=== PATIENT | female | born 1970 | race Caucasian/White ===

== ENCOUNTER 2017-01-13 00:31 | Emergency (ER) | payer BC ==
[2017-01-13] MEDS: Aspirin 81mg Chewable Tab PO STA ×2 (01:00→01:05)
[2017-01-13] MEDS ORDERED: Aspirin 81mg Chewable Tab ONE ×2 (01:02→01:05)
[2017-01-13] MEDS: Sodium Chloride 0.9% 1,000 ML IV ONE (01:10)
[2017-01-13] MEDS: Heparin Sodium 1,000 Units/mL Vial IVP STA (01:13)
[2017-01-13 01:14] LABS: % BASOPHILS 1.3 % (0.0-2.0); % LYMPHOCYTES 16.7 % (20.0-50.0); % MONOCYTES 6.6 % (2.0-10.0); % NEUTROPHILS 73.4 % (40.0-80.0); HEMATOCRIT 38.9 % (41.0-60); HEMOGLOBIN 13.7 gm/dL (12-16); MEAN CELL VOLUME 88.2 fl (81-100); MEAN CORPUSCULAR HGB CONC 35.1 pg (28.0-36.0); MEAN PLATELET VOLUME 9.1 fl; NEUTROPHILE ABSOLUTE 11.7 Th/cmm (1.8-8.0); PLATELET COUNT 233 Th/cmm (150-400); RED BLOOD COUNT 4.41 Mil/cmm (3.80-5.10)
[2017-01-13] MEDS ORDERED: Metoprolol tartrate 1 mg/ml 5mL Amp IV ONE ×2 (01:15→01:26)
[2017-01-13] MEDS: Metoprolol tartrate 1 mg/ml 5mL Amp IV STA ×2 (01:15→01:24)
[2017-01-13] MEDS ORDERED: Morphine Sulfate 4 mg/mL 1mL Syr ONE (01:18)
[2017-01-13 01:21] LABS: WHITE BLOOD COUNT 15.9 Th/cmm (4.8-10.8)
[2017-01-13 01:40] LABS: ALB/GLOB RATIO 1.5 (1.0-1.8); ALKALINE PHOSPHATASE 81 U/L (34-104); BILIRUBIN,TOTAL 0.4 mg/dL (0.3-1.0); BUN - UREA NITROGEN 15 mg/dL (7-25); BUN/CREATININE RATIO 21.4; CARBON DIOXIDE 28.6 mEq/L (21.0-31.0); CHLORIDE 105 mEq/L (98-107); CHOLESTEROL 158 mg/dL (<200); CREATININE - SERUM 0.7 mg/dL (0.6-1.2); GLUCOSE 138 mg/dL (70-105); POTASSIUM SERUM 3.6 mEq/L (3.5-5.1); SGOT 17 U/L (13-39); SGPT/ALT 25 U/L (7-52); SODIUM SERUM 139 mEq/L (136-145); TRIGLYCERIDES 118 mg/dL (<150)
--- NOTE | 2017-01-13 01:54 | ER Physician Documentation ---
DATE OF SERVICE: 01/13/2017 HISTORY OF PRESENT ILLNESS: A 46-year-old female patient. Date of admission 1970, full code patient. ALLERGIES: No known allergies. Body weight is 90.781. This is a female patient, date of 1970. This is a 46-year-old female patient who came to the hospital. INCOMPLETE DICTATION. [facility]# [id number]
--- NOTE | 2017-01-13 04:30 | ER Physician Documentation ---
DATE OF SERVICE: 01/13/2017 EVALUATION AND TREATMENT IN THE EMERGENCY ROOM The patient is a full code. The patient's weight is 90.718 kg. The patient came to the hospital with chest pain via an ambulance stretcher. She was put in bed 1 and Vera is the nurse trying to take care of the patient and the patient has been having chest pain since 10:00 and she has been having occasional episodes of this chest pain for which she takes a pickle and it relieves the pain. Now the pain is persistent for which she came to the Emergency Room. HISTORY OF PRESENT ILLNESS: The patient is known to have severe hypertension for which she takes losartan 100 mg once a day. She has rheumatoid arthritis for many years for which she takes I think Humira injections, the dose exactly is not known. She was having a lot of pain and immediately we got an EKG done and I looked at the EKG and orders were all immediately placed. EKG showed acute inferior wall SD. The first EKG that was done on 01/13/2017 at 12:52 a.m., the lateral leads also started showing ST depressions in lead I, lead aVL, ST elevations in leads II, III, aVF and some ST elevations were seen also in lead III and some ST elevations were also seen slight 0.5 mm in V4, V5, V6. A second EKG was immediately ordered also, it was done at 01:12, almost 18 minutes apart. This showed that the patient has what looks like a junctional rhythm type of pattern. There are no P waves seen. There is a right bundle-branch block pattern, inferior wall SD and anteroseptal wall SD is seen and lateral leads are also involved. We need to get right precordial EKGs but in the meantime the paramedics arrived and they were ready to take the patient. The patient was ordered to be given aspirin 162 mg chewable x 2, i.e., 325 mg was given; Plavix 75 mg once was given and then 300 mg once was given but the nurse unfortunately did not give that saying that she has not given Plavix that much ever in her lifetime; heparin 5000 units was given; losartan 50 mg was given because at admission blood pressure was 177 over more than 100, if I can remember, 107 or something like that; metoprolol 5 mg IV was given first and after about 20 minutes after due reluctance by the nurse, Vera, the second metoprolol was given to the patient and the blood pressure was 125/73 and the heart rate was 103 beats per minute; morphine 4 mg was given to the patient; nitroglycerin 0.4 mg x 3 was ordered but 0.4 x 2 has been given, IV nitroglycerin has been ordered. Protonix was ordered in case if we find time. Labs were ordered; some labs are available, some are not available. The patient was immediately transferred to [facility]. Emergency Room was called by our nurse, Bull. He called and gave the report to the Emergency Room. Bull who called the report to the Emergency Room doctor and the patient was transferred. She voided and she went to the Emergency Room over there. She was picked up by the paramedics in the fire ambulance. PAST MEDICAL HISTORY: She had similar kind of pain about 1 year ago and she came to this hospital. The patient's lab workup was sent and is not yet available. All the cardiac enzymes, BNP, troponin, magnesium, etc., were ordered. CRP, lipid profile, etc., were ordered. The patient was sent to Emergency Room, [facility], where the telephone number is [phone]. The patient's past medical history is that she also has rheumatoid arthritis for which she takes Humira injections by her physician. She has hypertension for which she takes 100 mg of metoprolol. She has obesity. She does not remember that she has any hypercholesterolemia. She does not take any medicines for high cholesterol. Her weight is 90.78 kg. She has discomfort that started in the center of the chest, gradually increased to 10/10 or 11/10 according to her, radiating into the left arm, associated with mild diaphoresis, discomfort, difficulty in breathing and classical features of an acute myocardial infarction was noted. The ball immediately started rolling and the patient was transferred out in 55 minutes to be exact. The patient from the time that she was rolled in to the time the patient left the ER was about 55 minutes. The patient's risk factors for coronary artery disease includes her age and includes her having this pain before, rheumatoid arthritis, and other histories could not be taken because she was in discomfort, not able to give any history, while she was having any pain. The nurse was trying to give the medications and magnesium report was not available. We could not know what the magnesium level was. We do not have any troponin results also at the time of the dictation. The patient's past medical history is other than rheumatoid arthritis, hypertension. No other history was given by the patient. The code status is full. Past history as I mentioned. REVIEW OF SYSTEMS: CONSTITUTIONAL: She did not complain of any complaint of eyes. HEART: Other than chest, she had no complaint of shortness of breath. She had no history of any rheumatic fever, valvular heart disease, pericardial disease or cardiomyopathy. GASTROINTESTINAL: No complaints except that the pain did not radiate into the epigastrium or any place except into the left arm. VASCULAR: Pulses in upper and lower extremities were well felt and were normal. PAST SURGERY: Includes history of previous partial hysterectomy that was done. FAMILY HISTORY: Mother has hypertension and diabetes mellitus and she takes losartan 100 mg daily as well as Humira. Along with the pain in the left arm, she also had some nausea, should be noted. ALLERGIES: No known drug allergies were noted. PHYSICAL EXAMINATION: VITAL SIGNS: Show temperature to be 97.9, pulse of 61, respirations 18, blood pressure 177/93 but before that it was somewhat higher than that as I witnessed. Her saturation was 99%. Oxygen was given to the patient. The patient was connected to personnel monitor and oxygen saturation was monitored which initially was 100%, then it was 99%. Her height is 5 feet 7 inches, weight by pound is 200 pounds. GENERAL: The patient appeared to be awake, alert, oriented, obese lady, in acute cardiac distress 10/10 or 11/10 pain. NECK: Jugular venous pressure was normal. HEENT: Pupils were equal, reacting to light. The patient was in discomfort. She wanted to sit up. She was put in the sitting up position at about 70-degree angle. No edema over the legs. Her pulses in upper extremities and lower extremities were well felt. Carotids were well felt. Jugular venous pressure was not full. There was no cyanosis, no petechiae, no ecchymosis was noted. was sitting by the bedside. CHEST: Examined. Trachea was found to be central. Fairly good air entry in both lungs without any rales, rhonchi, or bronchial breathing. Chest x-ray was not ordered because of the patient's immediate need for transfer to [facility] for probably ER evaluation and cardiology evaluation for probably urgent PCI evaluation. In light of that, the patient was given aspirin. In light of that, 375 mg of Plavix was ordered 5 tablets, only 1 tablet unfortunately was given; 5000 units of heparin was given; 50 mg of losartan was given. The losartan was the last one that was given. Metoprolol 5 mg was given in the beginning. Second dose was ordered by the nurse to be given, unfortunately not given; at the time of transfer, at the last minute, this was given. Other medications were given, 4 mg morphine was given to the patient. IV drip was started to keep the vein open, 100 mL per hour was given to the patient. HEART: Reveals normal heart sounds, appeared to be distant. S1, S2 well audible. Second heart sound was physiologically split. After some time, second heart sound was somewhat wider split, one cannot say for sure whether it moves with the respiration in view of the patient's discomfort and moving around. There is no evidence of any pericardial rub. ABDOMEN: Soft. Liver was not enlarged. No free fluid in the abdominal cavity. Liver, spleen not enlarged. CENTRAL NERVOUS SYSTEM: Grossly within normal limits. LABORATORY DATA: The first set of troponin was less than 0.01. Other electrolytes came back just now about 2 minutes ago. I was handed over the electrolyte results which showed sodium 139, potassium of 3.6, chloride of 105, CO2 of 28.6, glucose of 138, BUN of 15, creatinine of 0.7, BUN to creatinine ratio is 21.5, total protein is 7.3, albumin was 4.4, globulin was 1.5, AST was 17, ALT was 25, alkaline phosphatase was 81, cholesterol 158, triglycerides 118, HDL cholesterol was 57, LDL was 99, magnesium was 2. BNP was 22.6, so clearly she was not in any heart failure at that time but the first set of EKG showing inferior wall SD with all the EKG changes as I mentioned earlier. The second EKG which was done after about 18-20 minutes later on showed a right bundle-branch block and right axis deviation and inferior wall SD, anterior wall SD, anteroseptal wall infarction and probably right ventricle might have been involved, one might need to get another EKG to be done, but the patient has gone. In the meantime, there was enough evidence to send the patient to [facility] under the care of singer and unloader for possible cardiac catheterization and to determine what further to be done for this patient, probably the patient might need a PCI procedure to be done and the glycoprotein IIb/IIIa was held up until the patient goes to the catheterization lab and the catheterization is done. In the meantime, unfortunately only 1 Plavix was given. It could be a blessing that only 1 was given depending upon what the orthopedic nurse there is giving but 5 Plavix were ordered in the Emergency Room. She does not smoke. She does not drink. She does not have diabetes mellitus. She does not have any hypercholesterolemia. Code status is full. FINAL DIAGNOSES: Acute inferior and probably with acute anterior wall myocardial infarction also along with right bundle-branch block and junctional rhythm presenting like an accelerated junctional rhythm is seen. The patient's initial EKG was sinus rhythm which immediately changed within 20 minutes to junctional rhythm with right bundle-branch block pattern with T-wave inversions in lead V1, V2, V3, V4, V5 and V6 and T waves were flattened up in V5 and T waves and ST segment were up in V6 suggesting anterior wall myocardial infarction also. So this suggests that the patient has multivessel coronary artery disease. The patient is sent for further evaluation and treatment at [facility]. Bull, our nurse, gave the report to the Emergency Room physician and they accepted the patient and the patient was transferred. I discussed the case with the paramedics and informed them about the diagnosis and the treatment given over here. According to Bull who kept the timing from the moment the patient came to the moment the patient left to the ER was approximately 55 minutes. JOB# [id number]
== END 2017-01-13 01:26 | disposition short-term general hospital (02) ==
LOC: ER 00:31
DX: I45.10 Unspecified right bundle-branch block (principal); Z90.710 Acquired absence of both cervix and uterus
CPT/HCPCS: 36415-UA; 80053-TC; 80061-TC; 83605; 83735-TC; 83880-TC; 84484-TC; 85025-TC; 90799; 93005; 96374; 96375; J1644; J7030; Z7610